=== PATIENT | female | born 1985 | race American Indian/Alaskan Native ===

== ENCOUNTER 2020-06-14 16:52 | Emergency (ER) | payer SELFPAY ==
[2020-06-14 18:03] VITALS: BP 126/89
[2020-06-15] MEDS ORDERED: IBUPROFEN 600 MG TAB PO ONE (00:34)
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
== END 2020-06-15 01:38 | disposition home or self-care (01) ==
LOC: ED 16:52
DX: M62.838 Other muscle spasm (principal); R20.2 Paresthesia of skin; J45.909 Unspecified asthma, uncomplicated; Z79.899 Other long term (current) drug therapy; Z98.890 Other specified postprocedural states
CPT/HCPCS: 99282